=== PATIENT | male | born 1930 | race Caucasian/White ===

== ENCOUNTER → 2017-04-20 | Outpatient (CLI) | payer OTHER ==
[~2017-04-20] MED LIST: AMLO5 PO; AMOCLA875 PO; ASPI325 PO; ASPI81EC PO; ATOR80 PO; CLOP75 PO; LEVSOD50 PO; LISI20 PO; LORA.5 PO; METF500 PO; METO100ER PO; METO50 PO; METO50ER PO; MYRBETRIQ50 MG PO; Magnesium500 M1 PO; POTASSIUM GLUC500 MG PO; Prilosec Otc20 MG PO; TAMS.4ER PO; TOCO400 PO; WARF3 PO; WARF4 PO
== END | disposition home or self-care (01) ==
LOC: LAB 11:54
DX: L08.0 Pyoderma (principal)
CPT/HCPCS: 87070; 87205

== ENCOUNTER → 2017-05-13 | Outpatient (CLI) | payer OTHER | END | disposition home or self-care (01) | LOC: PLD 11:31 → LAB SHORT 11:31 | DX: L90.5 Scar conditions and fibrosis of skin (principal) | CPT/HCPCS: 88305; 88312 ==

== ENCOUNTER → 2017-09-29 | Outpatient (CLI) | payer OTHER | END | disposition home or self-care (01) | LOC: LAB SHORT 14:53 → PLD 14:53 | DX: D48.5 Neoplasm of uncertain behavior of skin (principal) | CPT/HCPCS: 88305 ==